=== PATIENT | male | born 1960 | race Caucasian/White ===

== ENCOUNTER → 2021-02-15 | Outpatient (CLI) | payer OTHER ==
[~2021-02-15] MED LIST: OMNIPAQUE 350 MG/ML, 100ML BOTTLE ONE
[2021-02-15 12:28] LABS: CREATININE 1.14 mg/dL (0.7-1.3)
== END | disposition home or self-care (01) ==
LOC: RAD 11:46
PROVIDERS: ATTEND Family Medicine
DX: K57.30 Diverticulosis of large intestine without perforation or abscess without bleeding (principal)
CPT/HCPCS: 36415; 74178; 82565; Q9967